=== PATIENT | male | born 1950 | race Caucasian/White ===

== ENCOUNTER → 2016-08-01 10:39 | Day surgery (SDC) | payer MEDICARE ==
[~2016-08-01 10:39] MED LIST: Acetaminophen TAB* 325 MG PO PRN; Buffered Lidocaine 1% SYR 3ML* 3 ML/SYR SYRINGE INTRADERM ONE; Buffered Lidocaine 1% SYR 3ML* 3 ML/SYR SYRINGE ONE; Cyclopentolate 1% OPTH.SOL* 2 ML BTL ONE; Flurbiprofen 0.03% OPTH.SOL* 2.5 ML BTL ONE; Lidocaine 1% MPF* 2 ML VIAL ONE; Lidocaine 2% EPI 1:200000 MPF* 20 ML VIAL ONE; Midazolam* 1 MG/ML 2 ML VIAL (2 MG) ONE; Neomycin/Polymy/Dex OPTH.SUSP* MAXITROL 0.1% 5 ML ONE; Phenylephrine 2.5% OPTH.SOL* 2 ML BTL ONE; Povidone Iodine 5% OPTH* 30 ML BTL ONE; Proparacaine 0.5% OPHTH.SOL* 15 ML BTL ONE; Trypan Blue 0.06% SOL* 0.5 ML BTL ONE; acetaZOLAMIDE TAB* 250 MG ONE
[2016-08-01 15:57] VITALS: BP 143/77
--- NOTE | 2016-08-01 22:10 | OP ---
DATE OF OPERATION: 08/01/16 - [facility] DATE OF : 50 SURGEON: Pedro Krishnan MD PREOPERATIVE DIAGNOSIS: Cataract, left eye. POSTOPERATIVE DIAGNOSIS: Cataract, left eye. OPERATIVE PROCEDURE: Phacoemulsification, left eye with IOL. DESCRIPTION OF PROCEDURE: The patient was brought to the operating room after being given 1/2% Alcaine with epinephrine drops in the preoperative area. The eye was prepped and draped in the usual sterile fashion. Sterile drape and eyelid speculum were placed. Again, topical 1/2% Alcaine with epinephrine was given. A paracentesis incision was made at the 3 o'clock position with the No.75 blade. Clear cornea incision 2.2 x 2.2-mm was created at the 6 o'clock position starting at the anterior limbus using the 2.2-mm keratome. The anterior chamber was irrigated with 0.4 mL of 1% non-preservative intracameral lidocaine and filled with DisCoVisc. A capsulorrhexis was completed using the cystotome and the Utrata forceps. Hydrodissection was performed with balanced salt solution. The lens nucleus was removed with the Phacoemulsification handpiece without incident. Cortex was removed with the irrigation-aspiration handpiece. The capsular bag was re-inflated using DisCoVisc and an implant SN60WF 19.5 diopter was inserted with the shooter. The irrigation-aspiration handpiece was used to remove all residual DisCoVisc. The eye was refilled with balanced salt solution and the wound checked and found to be watertight. Topical Maxitrol drops were given. Of note, the patient had an extremely dense cataract. VisionBlue was used to stain the anterior capsule for visualization prior to capsulorrhexis. He also had a very small pupil. A Malyugin ring was used to dilate the pupil prior to capsulorrhexis, removed after insertion of the lens. The indication for complex cataract surgery was iris abnormalities requiring pupil dilation device and also dense white cataract requiring capsular stain. [id number]/[facility] #: [id number] [facility]TD[facility]
== END | disposition home or self-care (01) ==
LOC: OREAST 10:39
PROVIDERS: ATTEND Specialist
DX: H25.812 Combined forms of age-related cataract, left eye (principal); H18.231 Secondary corneal edema, right eye; H40.51X1 Glaucoma secondary to other eye disorders, right eye, mild stage; Z87.891 Personal history of nicotine dependence; H33.8 Other retinal detachments; Z68.35 Body mass index [BMI] 35.0-35.9, adult
CPT/HCPCS: A9270-GY; J2250; V2632

== ENCOUNTER 2016-09-12 11:19 | Day surgery (SDC) | payer MEDICARE ==
[~2016-09-12 11:19] MED LIST changes: -Acetaminophen TAB* 325 MG PO PRN; -Buffered Lidocaine 1% SYR 3ML* 3 ML/SYR SYRINGE ONE; -Cyclopentolate 1% OPTH.SOL* 2 ML BTL ONE; -Flurbiprofen 0.03% OPTH.SOL* 2.5 ML BTL ONE; -Lidocaine 1% MPF* 2 ML VIAL ONE; -Lidocaine 2% EPI 1:200000 MPF* 20 ML VIAL ONE; -Midazolam* 1 MG/ML 2 ML VIAL (2 MG) ONE; +NS 0.9% 1000 ML* 1,000 ML IV SCH; -Neomycin/Polymy/Dex OPTH.SUSP* MAXITROL 0.1% 5 ML ONE; -Phenylephrine 2.5% OPTH.SOL* 2 ML BTL ONE; -Povidone Iodine 5% OPTH* 30 ML BTL ONE; -Proparacaine 0.5% OPHTH.SOL* 15 ML BTL ONE; -Trypan Blue 0.06% SOL* 0.5 ML BTL ONE; -acetaZOLAMIDE TAB* 250 MG ONE
[2016-09-12] MEDS ORDERED: Triamcinolone Acetonide* 40 MG/ML 1 ML VIAL ONE (12:21)
[2016-09-12] MEDS ORDERED: Acetylcholine 1:100 OPTH* OPHTH.SOLN ONE (12:21)
[2016-09-12] MEDS ORDERED: Lidocaine 2% EPI 1:200000 MPF* 20 ML VIAL ONE (12:22)
[2016-09-12] MEDS ORDERED: BSS OPTH.SOL* BTL ONE (12:22)
[2016-09-12] MEDS ORDERED: Atropine 1% OPHTH.SOL* 2 ML BOT - 2 ML ONE (12:22)
[2016-09-12] MEDS ORDERED: Neomycin/Polymy/Dex OPTH.SUSP* MAXITROL 0.1% 5 ML ONE (12:22)
[2016-09-12] MEDS ORDERED: Hyaluronidase OVINE* 200 UNIT/ML ML SUBCUT ONE (12:22)
[2016-09-12] MEDS ORDERED: Povidone Iodine 5% OPTH* 30 ML BTL ONE (12:22)
[2016-09-12] MEDS ORDERED: Proparacaine 0.5% OPHTH.SOL* 15 ML BTL ONE (13:41)
[2016-09-12] MEDS ORDERED: Midazolam* 1 MG/ML 2 ML VIAL (2 MG) ONE (15:20)
[2016-09-12] MEDS ORDERED: KETAMINE HCL* 50 MG/ML 10 ML VIAL ONE (15:28)
[2016-09-12] MEDS ORDERED: Propofol* 10 MG/ML 20 ML BTL IV PUSH ONE (15:39)
[2016-09-12] MEDS ORDERED: Lidocaine 2% PF * 5 ML VIAL ONE (15:39)
[2016-09-12 17:30] VITALS: BP 153/86
--- NOTE | 2016-09-13 10:02 | OP ---
DATE OF OPERATION: 09/12/16 - [facility] DATE OF : 50 SURGEON: Pedro Krishnan MD ANESTHESIA: Local with MAC. PRE-OP DIAGNOSIS: Uncontrolled glaucoma. POST-OP DIAGNOSIS: Uncontrolled glaucoma. OPERATIVE PROCEDURE: Iris reconstruction, anterior chamber reconstruction, and Ahmed valve insertion with donor sclera, right eye. COMPLICATIONS: None. DESCRIPTION OF PROCEDURE: The patient was given retrobulbar anesthesia in the operating room, 50:50 mixture of 0.75% Marcaine and 2% lidocaine with epinephrine, 4 cc were given in the muscle cone without difficulty. The eye was prepped and draped in the usual sterile fashion. Lid speculum was placed. A paracentesis incision was made at the 8 o'clock position and visco dissection was used to dissect portions of the iris from the back of the cornea. The iris was adherent to the back of the cornea from approximately the 8 o'clock position all the way superiorly to the 2 o'clock position. Some areas of the iris were unable to be visco dissected. Blunt dissection was then used using the tip of the DisCoVisc cannula. There were still some remaining adhesions to the cornea. These were lysed using the tip of a 27-gauge needle. At the end of the iris release, the pupil was still round and the iris was completely detached from the posterior cornea. Attention was then directed to the Ahmed valve. A 6-0 silk traction suture was placed through the superior cornea and the eye rotated inferiorly. A fornix-based conjunctival peritomy was performed with Domenic scissors from the 9 o'clock to 12 o'clock position. Dissection was carried along bare sclera posteriorly to using the Domenic scissors. Hemostasis achieved with low temp cautery. An Ahmed valve FP7 was primed with balanced salt solution and placed on Tenon's with the footplates 10 mm posterior to the limbus. These footplates were sutured to bare sclera using two 9-0 Prolene interrupted sutures. The anterior chamber was then entered using a 27-gauge needle at the correct angle at the 10:30 position and then the tube trimmed to length and inserted into the anterior chamber. The tube was sutured to the sclera using two 9-0 Prolene sutures. Donor sclera was cut to cover the tube and sutured with four 10-0 nylon sutures. Then the conjunctiva was closed using a running 10-0 nylon locking suture. The traction suture was removed. Sub-Tenon's Kenalog 40 mg/mL was given 1 mL, topical atropine and Maxitrol, and the eye was patched. Of note, there was a large amount of scar tissue during dissection for placement of the plate. [id number]/[facility] #: [id number] [facility]
== END 2016-09-12 17:36 | disposition home or self-care (01) ==
LOC: OREAST 11:19
PROVIDERS: ATTEND Specialist
DX: H40.51X1 Glaucoma secondary to other eye disorders, right eye, mild stage (principal); H18.231 Secondary corneal edema, right eye; H26.492 Other secondary cataract, left eye; Z87.891 Personal history of nicotine dependence
CPT/HCPCS: A9270-GY; C1783; J2250; J2704; J3301; J3471

== ENCOUNTER 2017-11-06 09:36 | Day surgery (SDC) | payer MEDICARE ==
[~2017-11-06 09:36] MED LIST changes: +Buffered Lidocaine 0.9% SYRIN* 5 ML/SYR SYRINGE INTRADERM ONE; -Buffered Lidocaine 1% SYR 3ML* 3 ML/SYR SYRINGE INTRADERM ONE; +Dexamethasone IV* 4 MG/ML 1 ML (4 MG) IV SLOW PU ONE; +Levalbuterol 0.63MG/3ML NEB* UNIT OF USE INH ONE; +Midazolam* 1 MG/ML 2 ML VIAL (2 MG) ONE; -NS 0.9% 1000 ML* 1,000 ML IV SCH
[2017-11-06] MEDS ORDERED: Levalbuterol 0.63MG/3ML NEB* UNIT OF USE INH ONE (09:47)
[2017-11-06] MEDS ORDERED: Dexamethasone IV* 4 MG/ML 1 ML (4 MG) ONE (09:48)
[2017-11-06] MEDS ORDERED: Proparacaine 0.5% OPHTH.SOL* 15 ML BTL ONE (09:49)
[2017-11-06] MEDS ORDERED: Triamcinolone Acetonide* 40 MG/ML 1 ML VIAL ONE (10:23)
[2017-11-06] MEDS ORDERED: Lidocaine 2% PF* 10 ML AMP ONE (10:23)
[2017-11-06] MEDS ORDERED: Acetylcholine 1:100 OPTH* OPHTH.SOLN ONE (10:23)
[2017-11-06] MEDS ORDERED: Neomycin/Polymy/Dex OPTH.SUSP* MAXITROL 0.1% 5 ML ONE (10:24)
[2017-11-06] MEDS ORDERED: Povidone Iodine 5% OPTH* 30 ML BTL ONE (10:24)
[2017-11-06] MEDS ORDERED: Lidocaine 2% EPI 1:200000 MPF*10-20 ML VIAL ONE (10:24)
[2017-11-06] MEDS ORDERED: Hyaluronidase OVINE* 200 UNIT/ML ML SUBCUT ONE (10:25)
[2017-11-06] MEDS ORDERED: BSS OPTH.SOL* BTL ONE (10:26)
[2017-11-06] MEDS ORDERED: Atropine 1% OPHTH.SOL* 2 ML BOT - 2 ML ONE (10:26)
[2017-11-06] MEDS ORDERED: Sodium Bicarbonate 8.4% IV* 50 ML VIAL ONE (10:27)
[2017-11-06] MEDS ORDERED: Succinylcholine* 20 MG/ML 10 ML VIAL ONE (10:53)
[2017-11-06] MEDS ORDERED: Propofol* 10 MG/ML 20 ML BTL IV PUSH ONE (10:53)
[2017-11-06] MEDS ORDERED: fentaNYL* 50 MCG/ML 2 ML VIAL (100 MCG VIAL) ONE (12:36)
[2017-11-06] MEDS ORDERED: Esmolol* 10 MG/ML 10 ML (100 mg) ONE (12:55)
[2017-11-06] MEDS ORDERED: Phenylephrine INJ* 10 MG/ML 1 ML VIAL (10 MG) ONE (13:02)
[2017-11-06] MEDS ORDERED: Ondansetron INJ* 2 MG/ML VIAL IV PRN (14:10)
[2017-11-06] MEDS ORDERED: fentaNYL* 50 MCG/ML 2 ML VIAL (100 MCG VIAL) IV PRN (14:10)
[2017-11-06] MEDS ORDERED: Acetaminophen TAB* 325 MG PO PRN (14:10)
[2017-11-06] MEDS ORDERED: Naloxone* 0.4 MG/ML 1 ML VIAL IV PRN (14:10)
[2017-11-06] MEDS ORDERED: Scopolamine 1.5 mg* PATCH ONE (14:34)
[2017-11-06] MEDS ORDERED: Acetaminophen TAB* 325 MG ONE (14:35)
[2017-11-06 15:38] VITALS: BP 127/70
--- NOTE | 2017-11-06 16:55 | OP ---
OPERATIVE NOTE: DATE OF OPERATION: 11/06/17 - [facility] DATE OF : 50 SURGEON: Pedro Krishnan MD ANESTHESIA: General. 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 POST-OP DIAGNOSIS: OPERATIVE PROCEDURE: Removal of Ahmed valve and exploration. COMPLICATIONS: None. DESCRIPTION OF PROCEDURE: The patient was induced into general anesthesia without difficulty. Retrobulbar injection was given with 50:50 mixture of 0.75 % Marcaine and 2% lidocaine with epinephrine into the muscle cone. Eye was prepped and draped with speculum in place. It was noted that about the lateral one-third of his Ahmed valve was exposed supratemporally. There was a great deal of vascularization of the cornea and it was very hypotonous. A superior 6- 0 silk traction suture was placed through the superior limbus and rotated inferiorly. The Ahmed valve was freed of all scar tissue. The tip of the tube had been transected and everything removed. The conjunctiva was then closed using a running locking 10-0 nylon and 9- 0 Prolene suture. Attention was then directed to the inferior nasal aspect of the and implant a new device. Paracentesis made at the 3 o'clock position with 75-blade. Anterior chamber reinflated with balanced salt solution. Dissection was begun starting with a fornix base peritomy starting from the 3 o'clock to 6 o'clock position. Dissection carried posteriorly. I encountered a great deal of scar tissue throughout. As much dissection as I was comfortable with doing to try to free up the inferior nasal quadrant was performed. There appeared to be some kind of scleral buckle device about 10 mm posterior to the limbus. It was attempted to insert a new Ahmed valve into this area, but the tissue was too tight and I did not think it would be able to be implanted safely and also successfully because of the ability to cover the device, so I decided to just close with a 10 -0 nylon running locking suture and 9-0 Prolene running locking suture. All traction sutures were removed. Topical atropine and Maxitrol given and the eye was patched. [id number]/[facility] #: [id number] [facility]
== END 2017-11-06 15:40 | disposition home or self-care (01) ==
LOC: OREAST 09:36
PROVIDERS: ATTEND Specialist
DX: T85.328A Displacement of other ocular prosthetic devices, implants and grafts, initial encounter (principal); Y83.1 Surgical operation with implant of artificial internal device as the cause of abnormal reaction of the patient, or of later complication, without mention of misadventure at the time of the procedure; H40.51X1 Glaucoma secondary to other eye disorders, right eye, mild stage; H33.8 Other retinal detachments; H18.231 Secondary corneal edema, right eye; Z96.1 Presence of intraocular lens; Z68.35 Body mass index [BMI] 35.0-35.9, adult; Z87.891 Personal history of nicotine dependence
CPT/HCPCS: 88300; A9270-GY; J0330; J1100; J2001; J2250; J2704; J3010; J3301; J3471